=== PATIENT | male | born 1980 | race Caucasian/White ===

== ENCOUNTER 2024-12-29 07:04 | Emergency (ER) | payer OTHER ==
[~2024-12-29] VITALS: Ht 172.7 cm; Wt 86.0 kg
[2024-12-29 07:10] VITALS: O2SAT 98
[2024-12-29] MEDS: HALOPERIDOL LACTATE 5MG/ML VIAL IM ONE (08:23)
[2024-12-29] MEDS: SODIUM CHLORIDE 0.9% 1,000 ML IV ONE (08:23)
[2024-12-29 08:30] LABS: BASOPHILS % 0.2 % (0.0-2.0); EOSINOPHILS % 0.2 % (0.0-5.0); HEMOGLOBIN. 15.4 g/dL (14.0-18.0); LYMPHOCYTES % 11.1 % (20.0-50.0); MEAN CORPUSCULAR HEMOGLOBIN 29.5 pg (28.0-32.0); MEAN CORPUSCULAR HGB CONC 34.1 g/dL (31.0-37.0); MEAN CORPUSCULAR VOLUME 86.4 fL (80.0-94.0); MEAN PLATELET VOLUME 9.2 fl (7.4-10.4); MONOCYTES % 7.4 % (2.0-8.0); NEUTROPHILS % 81.1 % (40.0-76.0); PLATELET 253 x1000/uL (130-400); RED BLOOD CELL COUNT 5.21 mill/uL (4.7-6.1); RED CELL DISTRIBUTION WIDTH 13.9 % (11.6-14.6); WHITE BLOOD COUNT 19.7 x1000/uL (4.5-11.0)
[2024-12-29 08:45] LABS: CLARITY URINE CLOUDY (CLEAR); COLOR URINE YELLOW (YELLOW); GLUCOSE URINE NEGATIVE (NEGATIVE); KETONES URINE TRACE (NEGATIVE); LEUKOCYTE ESTERASE URINE NEGATIVE (NEGATIVE); NITRITE URINE NEGATIVE (NEGATIVE); OCCULT BLOOD URINE NEGATIVE (NEGATIVE); PROTEIN URINE TRACE (NEGATIVE); SPECIFIC GRAVITY URINE 1.024 (1.005-1.030)
[2024-12-29 08:49] LABS: CHLORIDE 104 mEq/L (98-107); POTASSIUM 4.1 mEq/L (3.5-5.1); SODIUM 138 mEq/L (136-145)
[2024-12-29 08:50] LABS: CALCIUM 9.8 mg/dL (8.7-10.4); CARBON DIOXIDE 22 mEq/L (21-32)
[2024-12-29 08:54] LABS: PARTIAL THROMBOPLASTIN TIME 23.3 sec (23.4-31.0); PROTHROMBIN TIME 10.4 sec (9.6-11.0)
[2024-12-29 08:55] LABS: CREATININE 0.9 mg/dL (0.6-1.3); GLUCOSE 125 mg/dL (70-105); UREA NITROGEN BLOOD 14 mg/dL (9-23)
[2024-12-29 08:56] LABS: ALANINE AMINOTRANSFERASE 52 IU/L (10-49)
[2024-12-29 08:57] LABS: ALBUMIN 4.4 g/dL (3.2-4.8); ASPARTATE AMINOTRANSFERASE 25 IU/L (<34); PROTEIN TOTAL 7.9 g/dL (6.0-8.3)
[2024-12-29 09:09] LABS: BACTERIA URINE 1+; SQUAMOUS EPITHELIAL CELL URINE NONE SEEN /lpf (RARE/1+); YEAST URINE NONE SEEN
[2024-12-29] MEDS ORDERED: ONDA-239 PO (09:19)
[2024-12-29 09:28] VITALS: BP 119/70; PULSE 90; RESP 20; TEMP 36.6; O2SAT 98
== END 2024-12-29 10:11 | disposition home or self-care (01) ==
LOC: ER 07:04
DX: K52.9 Noninfective gastroenteritis and colitis, unspecified (principal); N40.0 Benign prostatic hyperplasia without lower urinary tract symptoms
CPT/HCPCS: 80053; 81003; 83690; 85025; 85610; 85730; 86850; 86900; 86901; 36415; 74176; 96360; 96372; 99285; J1630; J7030; Z7610